=== PATIENT | female | born 1995 | race Caucasian/White ===

== ENCOUNTER → 2016-08-12 | Day surgery (SDC) | payer BC ==
[~2016-08-12] MED LIST: ACET-1311 PO; LACTATED RINGER'S 1000ML 1,000 ML IV SCH
== END | disposition home or self-care (01) ==
LOC: EDSTATUS 07:00 → C.PAT 10:37
DX: J35.01 Chronic tonsillitis (principal)

== ENCOUNTER → 2017-01-17 | Outpatient (CLI) | payer BC ==
[~2017-01-17] MED LIST changes: -LACTATED RINGER'S 1000ML 1,000 ML IV SCH
== END | disposition home or self-care (01) ==
LOC: C.LABSPEC 11:30
DX: J02.9 Acute pharyngitis, unspecified (principal)

== ENCOUNTER → 2017-04-13 | Outpatient (CLI) | payer BC ==
[2017-04-13 14:42] LABS: HEMATOCRIT 39.8 % (37-47); MEAN CELL VOLUME 83.3 fL (80-100); MEAN CORPUSCULAR HEMOGLOBIN 28.5 pg (25-34); MEAN CORPUSCULAR HGB CONC 34.2 g/dl (32-36); MEAN PLATELET VOLUME 10.5 fL (7.4-10.4); PLATELET COUNT 257 K/uL (130-400); RED BLOOD COUNT 4.78 M/uL (4.2-5.4); WHITE BLOOD COUNT 6.53 K/uL (4.8-10.8)
[2017-04-13 15:09] LABS: FERRITIN 32.6 ng/ml (8.0-388.0)
== END | disposition home or self-care (01) ==
LOC: C.LAB 14:04
DX: E61.1 Iron deficiency (principal)

== ENCOUNTER 2017-04-18 20:45 | Emergency (ER) | payer BC ==
[~2017-04-18] VITALS: Ht 167.6 cm; Wt 99.6 kg
[2017-04-18 21:11] VITALS: TEMP 36.7; Ht 167.6 cm; Wt 99.6 kg
[2017-04-18] MEDS ORDERED: DIPHTHERIA/TETANUS/PERTUSSIS 0.5 ML SYR/VIAL IM. ONE (21:45)
[2017-04-18] MEDS ORDERED: XYLOCAINE 1%/SOD BICARB 20 ML VIAL INFIL ONE (21:45)
[2017-04-18 22:21] VITALS: BP 123/88; PULSE 78; O2SAT 99
--- NOTE | 2017-04-18 22:25 | EMERGENCY ROOM VISIT NOTE ---
ED Visit Note First contact with patient: 21:34 CHIEF COMPLAINT: Finger laceration HISTORY OF PRESENT ILLNESS: This 22 year old female patient presents to the emergency department after cutting the left fourth finger while trying to cut an avocado about one hour ago. The bleeding has stopped. Denies weakness or numbness of the finger. The patient has full range of motion of the fingers. The patient rates the pain as sharp and 4/10. The patient denies any other injuries. The patient's tetanus shot is not up to date. REVIEW OF SYSTEMS: A 6 system review of systems was completed with positives and pertinent negatives listed in the HPI. ALLERGIES: No known allergies MEDICATIONS: No chronic medication PMH: No chronic medical disease SOCIAL HISTORY: Lives locally PHYSICAL EXAM: Vital Signs: Reviewed Nurse's notes, vital signs stable. GENERAL : White female, in no acute distress, well developed, well nourished. SKIN: There is a 1.5 cm long laceration on the palmar aspect of the left 4th finger near the PIP joint. The edges gape apart with traction. There is no foreign material in the wound and it looks clean. There is no significant bleeding. No deep structures such as tendons, bones, or significant blood vessels are seen in the base of the wound. Extension and flexion of the finger is full and strong. Full range of motion of the wrist and other fingers. Capillary refill less than 2 seconds. Normal sensation to light and sharp touch. EMERGENCY DEPARTMENT COURSE: I examined the patient. Verbal consent was obtained to perform the procedure. Using sterile technique the wound was cleansed with Betadine. 1 ml of 1% buffered lidocaine was used to perform a local block to anesthetize the patient. The area was sterilely draped. Once the patient was anesthetized, the wound was copiously irrigated under pressure with sterile saline. The wound was explored and there were no deep structures injured. The laceration was repaired using 4 simple interrupted 5-0 nylon sutures. The patient tolerated the procedure well. Hemostasis was achieved. The area was cleaned with sterile saline and dressed with bacitracin ointment and bandage. The patient was given a tetanus booster. The patient was discharged home in good condition. Problem List Medical Problems: (1) Patient currently Status: Chronic Current/Historical Medications No Active Prescriptions or Reported Meds Allergies Coded Allergies: No Known Allergies (Unverified , 9/12/17) Vital Signs Date Time Temp Pulse Resp B/P (MAP) Pulse Ox O2 Delivery O2 Flow Rate FiO2 04/18/17 21:11 36.7 70 20 129/81 96 Room Air Medications Administered Medications (Trade) Dose Ordered Sig/Cuong Route Start Time Stop Time Status Last Admin Dose Admin Diphtheria/ Pertussis/Tetanus Vacc (Adacel Inj) 0.5 ml ONCE ONCE IM. 04/18/17 21:45 04/18/17 21:46 DC 04/18/17 22:14 0.5 ML Departure Information Impression Primary Impression: Finger laceration Dispostion Home / Self-Care Condition GOOD Prescriptions No Active Prescriptions or Reported Meds Forms HOME CARE DOCUMENTATION FORM, IMPORTANT VISIT INFORMATION Patient Instructions My [facility] Additional Instructions Keep wound clean and dry. Do not allow any crusting or dried blood to accumulate on sutures. If this occurs, use a mild soap/water on a Q-tip to clean the wound. Do not use Peroxide to clean the wound as this can delay healing Use an antibiotic ointment like Bacitracin for 3-4 days, then let wound dry. You may bathe and shower as normal, but DO NOT SOAK the wound. Suture removal in about 8-10 days with your Family Doctor or in the ER. Return sooner for any signs of infection, increasing redness, swelling, or drainage.
== END 2017-04-18 22:20 | disposition home or self-care (01) ==
LOC: C.EDB 20:46 → C.EDD 22:20
DX: S61.215A Laceration without foreign body of left ring finger without damage to nail, initial encounter (principal); W45.8XXA Other foreign body or object entering through skin, initial encounter; Z23 Encounter for immunization

== ENCOUNTER → 2017-04-21 | Outpatient (CLI) | payer BC | END | disposition home or self-care (01) | LOC: C.PAPS 12:03 | PROVIDERS: ATTEND Physician Assistant | DX: Z01.419 Encounter for gynecological examination (general) (routine) without abnormal findings (principal) ==

== ENCOUNTER → 2017-04-21 | Outpatient (CLI) | payer BC ==
[2017-04-24 14:03] LABS: CHLAMYDIA TRACH RNA*** NOT DETECTED (NOT DETECTED); GC (NEIS GONORRHOEAE)RNA** NOT DETECTED (NOT DETECTED)
== END | disposition home or self-care (01) ==
LOC: C.LABSPEC 13:20
PROVIDERS: ATTEND Physician Assistant
DX: Z01.419 Encounter for gynecological examination (general) (routine) without abnormal findings (principal)

== ENCOUNTER 2017-04-26 14:19 | Emergency (ER) | payer BC ==
[~2017-04-26] VITALS: Ht 167.6 cm; Wt 100.0 kg
[2017-04-26 14:31] VITALS: Ht 167.6 cm; Wt 100.0 kg
--- NOTE | 2017-04-26 14:43 | EMERGENCY ROOM VISIT NOTE ---
ED Visit Note First contact with patient: 14:37 CHIEF COMPLAINT: Suture removal HISTORY OF PRESENT ILLNESS: This 22-year-old female patient returns to the ED today for removal of sutures that were placed 8 days ago. There has been no swelling, redness, or drainage from the wound. The patient feels like the laceration is healing well. REVIEW OF SYSTEMS: A 6 system review of systems was completed with positives and pertinent negatives listed in the HPI. PMH: Unchanged from previous visit. ALLERGIES: No known drug allergies PHYSICAL EXAM: Vital Signs: Reviewed Nurse's notes, vital signs stable. GENERAL : This is a 22-year-old female, in no acute distress. SKIN: There is a sutured wound on the finger with no signs of infection. There is no erythema, swelling, or tenderness. EMERGENCY DEPARTMENT COURSE: 4 sutures were removed without any difficulty and there was no separation of the wound edges. The patient was discharged home in good condition. DIAGNOSIS: Healing laceration and suture removal DISCHARGE INSTRUCTIONS AND TREATMENT: Wash any remaining crusts off of the wound today and resume your normal activities. Problem List Medical Problems: (1) Patient currently Status: Chronic Current/Historical Medications Scheduled PRN Acetaminophen (Tylenol), 650 MG PO DAILY PRN for Pain or Fever Allergies Coded Allergies: No Known Allergies (Unverified , 04/26/17) Vital Signs Date Time Temp Pulse Resp B/P (MAP) Pulse Ox O2 Delivery O2 Flow Rate FiO2 04/26/17 15:18 36.9 81 16 97 04/26/17 14:31 36.9 81 16 121/75 97 Room Air Departure Information Impression Primary Impression: Encounter for removal of sutures Dispostion Home / Self-Care Condition GOOD Referrals No Doctor, Assigned (PCP) Patient Instructions My [facility] Additional Instructions Wash any remaining crusts off of the wound today and resume your normal activities.
[2017-04-26] MEDS ORDERED: ACET-1311 PO (14:56)
[2017-04-26 15:18] VITALS: BP 121/75; PULSE 81; TEMP 36.9; O2SAT 97
== END 2017-04-26 15:00 | disposition home or self-care (01) ==
LOC: C.EDB 14:25 → C.EDD 15:00
DX: Z48.02 Encounter for removal of sutures (principal)

== ENCOUNTER 2017-08-23 09:36 | Emergency (ER) | payer BC, OTHER ==
[~2017-08-23] VITALS: Ht 167.6 cm; Wt 101.7 kg
[2017-08-23 09:41] VITALS: Ht 167.6 cm; Wt 101.7 kg
[2017-08-23] MEDS ORDERED: PSEUDOEPHEDRINE HCL 30 MG TAB PO STA (10:15)
[2017-08-23] MEDS ORDERED: SODIUM CHLORIDE 0.9% 1000ML 1,000 ML IV ONE (10:15)
[2017-08-23] MEDS ORDERED: BENZONATATE 100MG CAP PO ONE (10:15)
[2017-08-23] MEDS ORDERED: KETOROLAC TROMETHAMINE 30 MG/ML VIAL IV STA (10:15)
[2017-08-23] MEDS ORDERED: DiphenhydrAMINE HCL 50 MG/ML VIAL IV STA (10:15)
[2017-08-23] MEDS ORDERED: ALBUT/IPRATROP 3MG/0.5MG NEB 3 ML VIAL INH STA (10:19)
[2017-08-23] MEDS ORDERED: BCPILLS PO (10:25)
[2017-08-23 10:58] LABS: BASO % 0.2 %; BASO ABS # 0.01 K/uL (0-0.2); HEMATOCRIT 40.3 % (37-47); HEMOGLOBIN 14.1 g/dL (12.0-16.0); IG# 0.01 K/uL (0.00-0.02); LYMPH % 11.4 %; LYMPH ABS # 0.65 K/uL (1.2-3.4); MEAN CELL VOLUME 84.8 fL (80-100); MEAN CORPUSCULAR HEMOGLOBIN 29.7 pg (25-34); MEAN PLATELET VOLUME 9.9 fL (7.4-10.4); MONO % 5.9 %; MONO ABS # 0.34 K/uL (0.11-0.59); NEUT % 82.3 %; NEUT ABS # 4.71 K/uL (1.4-6.5); PLATELET COUNT 193 K/uL (130-400); RED CELL DISTRIBUTION WIDTH CV 13.3 % (11.5-14.5); RED CELL DISTRIBUTION WIDTH SD 41.1 fL (36.4-46.3); WHITE BLOOD COUNT 5.72 K/uL (4.8-10.8)
[2017-08-23 11:00] LABS: INFLUENZA B ANTIGEN Neg for Influ B (NEG)
--- NOTE | 2017-08-23 11:22 | DIAGNOSTIC IMAGING REPORT ---
CHEST 2 VIEWS ROUTINE CLINICAL HISTORY: Cough, fever and shortness of breath COMPARISON STUDY: No previous studies for comparison. FINDINGS: Lung volumes are diminished. Bibasilar opacities, left greater the right, are noted. This could reflect atelectasis or pneumonia. Right basilar opacity favors atelectasis. Cardiac size is normal. Mediastinal contours are normal. There is no evidence for pulmonary edema. IMPRESSION: Bibasilar opacities, left greater than right. Given diminished lung volumes, atelectasis is favored although a left lower lobe pneumonia could have this appearance. Electronically signed by: Pablito Echeverria M.D. 08/23/2017 11:21 AM Dictated Date/Time: 08/23/2017 11:19 AM
[2017-08-23 11:23] LABS: ALBUMIN 3.4 gm/dl (3.4-5.0); CALCIUM 8.5 mg/dl (8.5-10.1); CREATININE 0.78 mg/dl (0.60-1.20); TOTAL PROTEIN 7.6 gm/dl (6.4-8.2)
[2017-08-23] MEDS ORDERED: OSEL75CA12 PO (12:16)
[2017-08-23] MEDS ORDERED: PRED20TA2 PO (12:16)
[2017-08-23] MEDS ORDERED: BENZ100C18 PO (12:16)
[2017-08-23] MEDS ORDERED: VNTHFA/IN INH (12:16)
[2017-08-23] MEDS ORDERED: AZIT250T PO (12:16)
[2017-08-23 12:34] VITALS: BP 126/72; PULSE 120; TEMP 37.3; O2SAT 97
--- NOTE | 2017-08-24 06:59 | EMERGENCY ROOM VISIT NOTE ---
ED Visit Note First contact with patient: 09:53 Chief Complaint: Cough, shortness of breath, fever and migraine headache. History of Present Illness: Ms. Ugalde is a 22-year-old white female who ambulates into the ED accompanied by her mother with multiple complaints. Patient reports her symptoms started on Monday, 3 days ago, with what she describes as a migraine headache. She reports this is similar to her previous migraine headaches and is not the worst migraine headache of her life. Her pain is located over the right temporoparietal area. She describes this discomfort as a throbbing sensation. She currently rates her discomfort 6/10. Her pain is nonradiating. She has not identified any aggravating or alleviating factors related to the pain. She reports she's been using over-the- counter ibuprofen and acetaminophen without relief of her discomfort. On the second day of her headache she reports she developed a cough with nasal congestion and nasal drainage. Since that time her cough and nasal drainage and congestion has been constant. Then late on day 2 of her illness she reports she started feeling short of breath with her cough but did not hear any wheezing and she developed fevers she reports the highest temperature she had at home was someone 102F orally. She has been taking additional Tylenol for her fever and other symptoms but does not feel like she's had any relief. Associated with her new symptom she does report she has been having body aches, chills, decreased appetite. Her cough is productive of a greenish sputum but no blood. She denies skin eruptions, skin color changes, dizziness, lightheadedness, visual changes, hearing changes, difficulty speaking, difficulty swallowing, difficulty ambulating/coordinating body movements, throat pain, neck pain/ stiffness, chest pain, palpitations, orthopnea, dependent edema, previous clots , claudication, cramping, recent surgery/inactivity/extended travel, tobacco and estrogen use, abdominal pain, nausea/vomiting, diarrhea, constipation, rectal bleeding, black/tarry stools, urinary symptoms. Additionally she denies close sick contacts with similar symptoms. Review of Systems: As noted above in history of present illness. At least body systems were reviewed and found to be negative as noted above. Past Medical History: As previously noted, unspecified skin disorder, anemia. Current Medications: control. Allergies to Medications: Patient denies. Social History: Patient is currently employed; she feels safe in her home environment; she denies tobacco use and admits to alcohol use. Physical Examination: Vital Signs: Date Time Temp Pulse Resp B/P (MAP) Pulse Ox O2 Delivery O2 Flow Rate FiO2 08/23/17 12:34 37.3 120 22 126/72 97 08/23/17 12:06 125 23 96 08/23/17 12:00 121/66 08/23/17 11:36 109 25 96 08/23/17 11:30 106/59 08/23/17 11:28 117 18 115/64 98 08/23/17 11:21 115/64 08/23/17 11:06 121 27 08/23/17 10:36 114 26 08/23/17 10:23 121 08/23/17 09:41 38.4 125 20 124/70 95 Room Air GENERAL: 22-year-old female in mild to moderate distress due to symptoms, nontoxic-appearing, febrile and hemodynamically stable. NEUROLOGICAL: Awake, alert and oriented to person, place and time. Answering questions appropriately and following commands. Normal gait. Good hand eye coordination. No focal motor or sensory deficits. SKIN: Hot, dry and pink. No soft tissue eruptions or trauma noted. HEENT: Atraumatic and normocephalic. Mild tenderness over the frontal or maxillary sinuses. No tenderness in the area of her migraine headache. External ears are nontender. Auditory canals are pink and patent. Tympanic membranes are pearly diamond with normal light reflex. PERRLA. Sclera white and conjunctiva pink without drainage. No drainage from naris, but with audible congestion. Oral cavity moist and pink. Uvula is midline and no abscesses are seen. Pharynx is nonerythematous or edematous. No tonsillar hypertrophy or exudates. Speech normal. No lymphadenopathy. Trachea midline. No jugular venous distention. BACK: No tenderness over the bony spine. No meningismus. Full range of motion of the cervical spine. No CVA tenderness. THORAX: Lungs sounds are clear to auscultation and equal bilaterally with symmetrical chest wall. Decreased air movement in the bilateral lower lobes with prominence on the left. There were a few scattered rhonchi on the left that cleared with cough; no rales or wheezing. No wheezing, rales or rhonchi. Mild tenderness over the upper sternal area without bony deformity, bony crepitus or subcutaneous air. HEART: Tachycardic rate and rhythm. No gallops, rubs or murmurs are appreciated. PMI is not displaced. No lifts, heaves or thrills. ABDOMEN: Flat, soft and nontender. Positive bowel sounds in all quadrants. No guarding, rigidity or organomegaly. EXTREMITIES: Moves all extremities well on command and with purpose. All distal neurovascular statuses are intact and equal bilaterally. No calf tenderness or cords. ED Course: Patient is assessed as noted above. Patient's medication list was reviewed. Laboratory Testing: Test 08/23/17 09:19 08/23/17 10:30 08/23/17 10:56 Range/Units Influenza Type A Antigen POS for Influ A NEG Influenza Type B Antigen Neg for Influ B NEG White Blood Count 5.72 4.8-10.8 K/uL Red Blood Count 4.75 4.2-5.4 M/uL Hemoglobin 14.1 12.0-16.0 g/dL Hematocrit 40.3 37-47 % Mean Corpuscular Volume 84.8 80-100 fL Mean Corpuscular Hemoglobin 29.7 25-34 pg Mean Corpuscular Hemoglobin Concent 35.0 32-36 g/dl Platelet Count 193 130-400 K/uL Mean Platelet Volume 9.9 7.4-10.4 fL Neutrophils (%) (Auto) 82.3 % Lymphocytes (%) (Auto) 11.4 % Monocytes (%) (Auto) 5.9 % Eosinophils (%) (Auto) 0.0 % Basophils (%) (Auto) 0.2 % Neutrophils # (Auto) 4.71 1.4-6.5 K/uL Lymphocytes # (Auto) 0.65 1.2-3.4 K/uL Monocytes # (Auto) 0.34 0.11-0.59 K/uL Eosinophils # (Auto) 0.00 0-0.5 K/uL Basophils # (Auto) 0.01 0-0.2 K/uL RDW Standard Deviation 41.1 36.4-46.3 fL RDW Coefficient of Variation 13.3 11.5-14.5 % Immature Granulocyte % (Auto) 0.2 % Immature Granulocyte # (Auto) 0.01 0.00-0.02 K/uL Sodium Level 130 136-145 mmol/L Potassium Level 3.5-5.1 mmol/L Chloride Level 99 98-107 mmol/L Carbon Dioxide Level 22 21-32 mmol/L Anion Gap 9.0 3-11 mmol/L Blood Urea Nitrogen 7 7-18 mg/dl Creatinine 0.78 0.60-1.20 mg/dl Est Creatinine Clear Calc Drug Dose 135.0 ml/min Estimated GFR () 124.2 Estimated GFR (Non- 107.2 BUN/Creatinine Ratio 8.7 10-20 Random Glucose 107 70-99 mg/dl Calcium Level 8.5 8.5-10.1 mg/dl Total Bilirubin 0.3 0.2-1 mg/dl Aspartate Amino Transf (AST/SGOT) 15-37 U/L Alanine Aminotransferase (ALT/SGPT) 32 12-78 U/L Alkaline Phosphatase 81 45-117 U/L Total Protein 7.6 6.4-8.2 gm/dl Albumin 3.4 3.4-5.0 gm/dl Globulin 4.2 2.5-4.0 gm/dl Albumin/Globulin Ratio 0.8 0.9-2 Bedside Troponin I < 0.030 0-0.045 ng/ml Chest X-Rays: Were read by myself and the radiologist showing bibasilar opacities greater than right. Radiologist questions at this is atelectasis or pneumonia. Normal heart silhouette and bony anatomy. No evidence of pulmonary edema. EKG: Was read by myself and shows sinus tachycardia with a ventricular rate of 116 bpm. Normal axis, intervals and complexes. No acute ST changes indicating ischemia, injury or infarction. Medical records were reviewed with no comparisons were found. Patient was hydrated with normal saline and received an albuterol/Atrovent nebulizer breathing treatment, 30 mg of Toradol IV for pain and fever, 25 mg of Benadryl IV, 60 mg of pseudoephedrine IV and 200 mg of Tessalon Perles by mouth. Patient was reassessed multiple times during her stay in the emergency department; after her breathing treatment her lungs are reassessed showed improved air movement in all álvarez including the bases but the left based was still decreased; she had no wheezing rales or rhonchi. Patient's case was reviewed with Dr. Sarmiento; we agreed on diagnostic approach , treatment, disposition and plan. Patient was educated about today's findings and instructed on her treatment plan ; she verbalized understanding and agreement with this plan. Clinical Impression: Influenza A. Left lower lobe pneumonia. Migraine headache. Decision-Making: Initially my differential diagnosis for her headache I considered migraine, sinusitis, intracranial bleed and other causes. For her upper respiratory tract symptoms and fever I considered influenza, pneumonia, bronchitis and other causes. Disposition: Patient discharged home in stable condition accompanied by her mother; prior to departure she was reassessed and subjectively reported she was feeling much better. She rated her headache discomfort 2/10 and felt she had improvement of her cough. Plan: A she was encouraged to alternate ibuprofen and acetaminophen as needed for persistent pain. Patient was prescribed Tamiflu, Zithromax, Tessalon Perles, prednisone and albuterol inhaler and instructed on their use. Patient is encouraged to use OTC pseudoephedrine for congestion. Patient is encouraged to follow-up with family physician for recheck in 2-3 days. Patient was signed off of work and school until she was fever free for 24 hours. Patient was encouraged return ED for worsening symptoms, uncontrolled fevers, uncontrolled shortness of breath/cough, coughing up blood or any new/concerning symptoms.
== END 2017-08-23 12:35 | disposition home or self-care (01) ==
LOC: C.EDB 09:38
DX: J11.00 Influenza due to unidentified influenza virus with unspecified type of pneumonia (principal); G43.909 Migraine, unspecified, not intractable, without status migrainosus

== ENCOUNTER 2024-08-14 08:50 | Inpatient (IN) ==
[2024-08-14] MEDS ORDERED: CALCIUM CARBONATE 500 MG CHEWABLE TAB PO PRN (09:15)
[2024-08-14] MEDS ORDERED: ACETAMINOPHEN 325 MG TAB PO PRN ×2 (09:15→18:14)
[2024-08-14] MEDS ORDERED: LIDOCAINE 1% LOCAL 20 ML VIAL INFIL PRN (09:15)
[2024-08-14] MEDS ORDERED: OXYTOCIN 30 UNITS/NSS 30 UNITS/500 ML BAG IV PRN ×2 (09:15→18:14)
[2024-08-14 09:44] LABS: Hematocrit (blood only) 36.4 % (37.0-47.0); Hemoglobin 12.3 g/dl (12.0-16.0); Mean Corpuscular Hemoglobin 28.3 pg (25.0-34.0); Mean Corpuscular Hgb Conc 33.8 g/dL (32.0-36.0); Mean Corpuscular Volume 83.9 fL (80.0-100.0); Mean Platelet Volume 10.5 fL (9.4-12.4); Platelet Count 189 K/uL (130-400); RDW Standard Deviation 43.2 fL (36.4-46.3); Red Blood Count 4.34 M/uL (4.20-5.40)
--- NOTE | 2024-08-14 11:12 | History & Physical Report ---
Date of Service August 14, 2024 Assessment & Plan (1) Encounter for supervision of normal intrauterine in multigravida, antepartum: Plan 29 year old presenting in labor at 39+6WGA with a hx of gestational diabetes mellitus. ROS noncontributory besides expected abdominal pain. Contractions began at 4:30AM and patient noticed bloody show at 6:30AM. Currently receiving ptocin. Continue deep breathing techniques, current PRN medications and monitoring labor progression. Epidural is available for when patient requests pain control. History of Present Illness Chief Complaint: currently in labor Primary Care Provider: Cristy Hughes DO Patient is a 29 yo female A2 currently at 39+6WGA with an CORNEL 08/15/2024 as determined by LMP who is here in labor. Her was complicated by Gestational Diabetes Mellitus(GDM), managed with diet. Sugars usually 90 or lower throughout . Contractions began at 4:30AM about 10 minutes apart, continuing to shorten; movement present; No ruptured membranes or fluid loss; noticed bloody show at 6:30AM External FHT and external uterine monitors used; category I tracing; normal FHT variability Had regular appointments with OB, has had serial reactive NSTs since 07/22/24 @ 32 weeks and growth US since 24weeks. GBS Negative. Blood type: A Positive Antibody screen: Negative (01/18/2024) Hgb: 12.3 (today) Hct: 36.4 (today) WBC: 10.2 (today) Plt: 189 (today) Rubella: Immune (01/18/24) VDRL/RPR: Negative (01/18/24) Gonorrhea: Not Detected (01/18/24) Chlamydia: Not Detected (01/18/24) HIV: Non-Reactive (01/18/24) HbSAg: Non-Reactive (01/18/24) GBS: Negative Other screens: cff-DNA: Negative (see scanned documents) CF: Negative SMA: Negative Allergies Allergy/AdvReac Type Severity Reaction Status Date / Time No Known Allergies Allergy Unverified 08/13/24 10:57 Home Medications Medication Instructions Recorded Confirmed Type acetone (urine) test (Ketone Urine #50 ea 03/29/24 08/13/24 Rx Test strips) blood sugar diagnostic (OneTouch #150 ea 03/29/24 08/13/24 Rx Verio test strips) blood-glucose meter (OneTouch #1 ea 03/29/24 08/13/24 Rx Verio Reflect Meter) lancets 33 gauge (OneTouch Delica #150 ea 03/29/24 08/13/24 Rx Plus Lancet) breast pump #1 ea 05/23/24 08/13/24 Rx vits no.124-ferrous fum 1 tab PO DAILY 08/14/24 08/14/24 History 27 mg iron-folic acid 800 mcg tablet ( Vitamin) Patient History Medical History Varicella vaccination Surgical History No pertinent past surgical history Family History Aunt Breast cancer Father Hypertension Dyslipidemia Diabetes Denies family history of Ovarian cancer Colorectal cancer Social History Smoking Status: Never smoker Do You Dip or Chew Tobacco: No; Hx Alcohol Use: No Hx Substance Use: No Preferred Language: Hebrew Communication Ability: Effective Back Hanger Required: No Beliefs That Will Affect Care: None marital status: Single marital status details: Jose Juan Figueroa (30) [phone] Current Living Situation: Significant Other Current Living Situation Comment: Lives with fiance and daughter, 2 dogs current occupational status: employed current occupation: [employer] Feels Safe at Home: Yes Safety Concerns: Feels Safe At This Time OB History Had at 40 weeks in 2012 resulting in healthy female. No complications, no use of forceps/vacuum during delivery. Had a spontaneous at 6 weeks in October 2022 and spontaneous at 6 weeks in August 2023. [employer] WORK[employer] History No history of gynecologic disorders Review of Systems All systems reviewed & are unremarkable except as noted in HPI & below Denies fever, night sweats Denies vision changes Linus SOB, cough. Additional Comments: Denies CP, palpitations Denies N/V. Denies headache. Physical Exam Constitutional: WD/WN, vitals as above Respiratory: normal respiratory effort, lungs clear to auscultation Cardiovascular: RRR, no murmur, no edema Gastrointestinal (Abdomen): Inspection/Auscultation: normal bowel sounds Uterus is term . On Manohar's manuver, baby appeared to be in cephalic presentation. Genitourinary: OB Exam Abdomen: + vertex and + regular contractions (3-5 minutes mild to moderate) OB Exam Monitor Tracing: + external FHT monitor used, + external uterine monitor used, + category I and + normal FHT variability 4-5cm/80/-2 Results & Data Vital Signs (Past 12 Hours) Vital Signs Temp Pulse Resp BP 08/14/24 09:10 107 H 08/14/24 09:10 130/84 08/14/24 09:06 36.9 C 18 08/14/24 09:03 115 H 143/81 H Supervising Physician Co-Signing Physician Notes Resident Physician Supervision Note: I interviewed and examined the patient. Discussed with Dr. Rodriguez and agree with findings and plan as documented in the note. Any exceptions or clarifications are listed here: [None] Documented By: Lesli Miller MD, FACOG
[2024-08-14] MEDS: SODIUM CHLORIDE 0.9% 1,000 ML IV SCH (12:05)
[2024-08-14] MEDS ORDERED: NALBUPHINE HCL INJ 10 MG/ML AMP IV PRN (12:18)
[2024-08-14] MEDS ORDERED: diphenhydrAMINE 50 MG/ML VIAL IV PRN (12:18)
[2024-08-14] MEDS ORDERED: LIDOCAINE 2% MPF LOCAL 5 ML VIAL EPI PRN (12:18)
[2024-08-14] MEDS ORDERED: NALOXONE HCL 0.4 MG/1 ML VIAL/CARP IV PRN (12:18)
[2024-08-14] MEDS ORDERED: ROPIVACAINE 0.5% PF 5 MG/ML 20 ML VIAL EPI PRN (12:18)
[2024-08-14] MEDS ORDERED: SODIUM CHLORIDE 0.9% PF INJ 10 ML VIAL EPI PRN (12:18)
[2024-08-14] MEDS ORDERED: ePHEDrine sulfate 50 MG/ML AMP IV PRN (12:18)
[2024-08-14] MEDS ORDERED: NALOXONE HCL 1 MG in SODIUM CHLORIDE 0.9% 1,000 ML IV PRN (12:18)
--- NOTE | 2024-08-14 12:20 | Anesthesiology Consultation ---
Date of Service August 14, 2024 Assessment & Plan ASA ASA2 Proposed Anesthesia Anesthesia Type: Labor Epidural History Height/Weight Height: 5 ft 5 in Weight: 108.862 kg Allergies Allergy/AdvReac Type Severity Reaction Status Date / Time No Known Allergies Allergy Unverified 08/13/24 10:57 Medications Home Medications Medication Instructions Recorded Confirmed Last Taken acetone (urine) test (Ketone Urine #50 ea 03/29/24 08/13/24 Unknown Test strips) blood sugar diagnostic (OneTouch #150 ea 03/29/24 08/13/24 Unknown Verio test strips) blood-glucose meter (OneTouch #1 ea 03/29/24 08/13/24 Unknown Verio Reflect Meter) lancets 33 gauge (OneTouch Delica #150 ea 03/29/24 08/13/24 Unknown Plus Lancet) breast pump #1 ea 05/23/24 08/13/24 Unknown vits no.124-ferrous fum 1 tab PO DAILY 08/14/24 08/14/24 08/13/24 27 mg iron-folic acid 800 mcg tablet ( Vitamin) Active Medications Generic Name Dose Route Start Last Admin Trade Name Freq PRN Reason Stop Dose Admin Bupivacaine HCl 30 ml 08/14/24 12:18 08/14/24 12:52 Bupivacaine 0.25% Pf 30 Ml Vial EPI 08/15/24 12:17 30 ml ONCE PRN Administration Epidural Redose Fentanyl Citrate 100 mcg 08/14/24 12:18 08/14/24 12:53 Fentanyl Citrate Pf 100 Mcg/2 Ml Vial EPI 08/15/24 12:17 100 mcg ONCE PRN Administration Epidural Redose Fentanyl/Bupivacaine/Sodium Chlor 100 ml 08/14/24 12:18 08/14/24 12:53 Fentanyl 2 Mcg/Ml Bupivacaine 0.125%-Nss 100ml Bag EPI 08/15/24 12:17 100 ml PRN PRN Administration Pain R/T Labor Protocol Sodium Chloride 1,000 mls @ 125 mls/hr 08/14/24 12:15 08/14/24 13:09 Nss IV 08/15/24 12:14 125 mls/hr .Q8H KARLEE Administration Oxytocin 30 units in 500 mls @ 5 mls/hr 08/14/24 13:24 08/14/24 16:35 Pitocin 30 Units/Nss IV 08/16/24 13:23 0.3 units/hr .Q24H PRN 5 mls/hr Labor Induction/Augmentation Titration Protocol 0.3 UNITS/HR Ondansetron HCl 4 mg 08/14/24 12:18 08/14/24 14:18 Ondansetron Inj 2 Mg/Ml 2 Ml Vial IV 08/15/24 12:17 4 mg Q6H PRN Administration Nausea &/or Vomiting Past Medical History Medical History Varicella vaccination Past Family History Family History Aunt Breast cancer Father Hypertension Dyslipidemia Diabetes Denies family history of Ovarian cancer Colorectal cancer Past Surgical History Surgical History No pertinent past surgical history Social History Smoking Status: Never smoker Do You Dip or Chew Tobacco: No Hx Alcohol Use: No Hx Substance Use: No substance use type: does not use Physical Exam Vital Signs Last Vital Signs Temp 36.7 C 08/14/24 15:16 Pulse 101 H 08/14/24 18:21 Resp 16 08/14/24 18:20 BP 104/57 L 08/14/24 18:20 Pulse Ox 99 08/14/24 18:21 Testing Laboratory Results 08/14/24 09:24 Blood Type A Positive 08/14/24 09:24 Antibody Screen NEGATIVE 08/14/24 09:24 08/14/24 10:46 POC Glucose 82
[2024-08-14] MEDS: LIDOCAINE 2%/EPINEPHRINE 1:200,000 20 ML PF EPI STA (12:52)
[2024-08-14] MEDS: BUPIVACAINE 0.25% PF 30 ML VIAL EPI PRN (12:52)
[2024-08-14] MEDS: fentaNYL citrate PF 100 MCG/2 ML VIAL EPI PRN (12:53)
[2024-08-14] MEDS: fentANYL 2 MCG/ML BUPIVacaine 0.125%-NSS 100ML BAG EPI PRN (12:53)
[2024-08-14] MEDS: OXYTOCIN 30 UNITS/NSS 30 UNITS/500 ML BAG IV PRN (13:49)
[2024-08-14] MEDS: ONDANSETRON INJ 2 MG/ML 2 ML VIAL IV PRN (14:18)
--- NOTE | 2024-08-14 15:41 | Labor Progress Brief Note ---
Date of Service August 14, 2024 Subjective Reason For Note: Routine Evaluation comfortable with epidural some nausea- got IV zofran FHT- category 1 ctns Q3 minutes cervix 5cm/80/-2- AROM for meconium stained fluid at 1500 Review of Systems All systems reviewed & are unremarkable except as noted in HPI & below Results & Data Vital Signs (Past 12 Hours) Vital Signs Temp Pulse Resp BP Pulse Ox 08/14/24 15:36 100 08/14/24 15:36 65 08/14/24 15:31 100 08/14/24 15:31 73 08/14/24 15:29 70 08/14/24 15:29 99/56 L 08/14/24 15:26 100 08/14/24 15:26 71 08/14/24 15:21 100 08/14/24 15:21 78 08/14/24 15:16 100 08/14/24 15:16 64 08/14/24 15:16 99/56 L 08/14/24 15:11 100 08/14/24 15:11 64 08/14/24 15:06 100 08/14/24 15:06 64 08/14/24 15:01 98 08/14/24 15:01 77 08/14/24 15:01 107/59 L 08/14/24 14:59 93 08/14/24 14:59 81 08/14/24 14:56 100 08/14/24 14:56 82 08/14/24 14:51 100 08/14/24 14:51 130 H 08/14/24 14:50 93 08/14/24 14:50 85 08/14/24 14:46 100 08/14/24 14:46 83 08/14/24 14:44 83 08/14/24 14:44 90/55 L 08/14/24 14:41 97 08/14/24 14:41 107 H 08/14/24 14:40 91 08/14/24 14:40 89 08/14/24 14:36 100 08/14/24 14:36 78 08/14/24 14:35 93 08/14/24 14:35 89 08/14/24 14:31 100 08/14/24 14:31 83 08/14/24 14:31 73 08/14/24 14:31 92/50 L 08/14/24 14:29 88 08/14/24 14:29 92/55 L 08/14/24 14:26 95 08/14/24 14:26 81 08/14/24 14:25 92 08/14/24 14:25 83 08/14/24 14:20 96 08/14/24 14:20 89 08/14/24 14:20 91 08/14/24 14:20 90 08/14/24 14:15 100 08/14/24 14:15 84 08/14/24 14:14 103 H 08/14/24 14:14 94/66 L 08/14/24 14:10 98 08/14/24 14:10 86 08/14/24 14:07 91 08/14/24 14:07 95 H 08/14/24 14:05 98 08/14/24 14:05 98 H 08/14/24 14:00 95 08/14/24 14:00 96 H 08/14/24 14:00 93 H 08/14/24 14:00 111/63 08/14/24 13:55 100 08/14/24 13:55 91 H 08/14/24 13:50 100 08/14/24 13:50 86 08/14/24 13:45 100 08/14/24 13:45 84 08/14/24 13:45 96 H 08/14/24 13:45 114/56 L 08/14/24 13:40 99 08/14/24 13:40 93 H 08/14/24 13:40 94 08/14/24 13:40 97 H 08/14/24 13:35 100 08/14/24 13:35 91 H 08/14/24 13:30 100 08/14/24 13:30 92 H 08/14/24 13:28 80 08/14/24 13:28 119/69 08/14/24 13:25 98 08/14/24 13:25 90 08/14/24 13:21 88 08/14/24 13:21 121/66 08/14/24 13:20 100 08/14/24 13:20 90 08/14/24 13:19 90 08/14/24 13:19 97 H 08/14/24 13:15 100 08/14/24 13:15 89 08/14/24 13:15 87 08/14/24 13:15 97.5 F L 93 H 14 121/71 100 08/14/24 13:14 93 H 08/14/24 13:14 123/67 08/14/24 13:10 98 08/14/24 13:10 95 H 08/14/24 13:09 97 H 08/14/24 13:09 115/61 08/14/24 13:05 100 08/14/24 13:05 95 H 08/14/24 13:04 103 H 08/14/24 13:04 106/57 L 08/14/24 13:03 106 H 08/14/24 13:03 88/45 L 08/14/24 13:00 99 08/14/24 13:00 90 08/14/24 13:00 94 H 08/14/24 13:00 95/50 L 08/14/24 12:55 100 08/14/24 12:55 104 H 08/14/24 12:54 106 H 08/14/24 12:54 110/53 L 08/14/24 12:50 100 08/14/24 12:50 83 08/14/24 12:49 96 H 08/14/24 12:49 134/62 08/14/24 12:45 100 08/14/24 12:45 89 08/14/24 12:40 100 08/14/24 12:40 100 H 08/14/24 12:35 98 08/14/24 12:35 100 H 08/14/24 12:30 100 08/14/24 12:30 78 08/14/24 12:25 100 08/14/24 12:25 84 08/14/24 12:20 100 08/14/24 12:20 79 08/14/24 12:15 100 08/14/24 12:15 88 08/14/24 12:10 100 08/14/24 12:10 83 08/14/24 12:06 81 08/14/24 12:06 122/69 08/14/24 09:30 18 08/14/24 09:30 18 08/14/24 09:10 107 H 08/14/24 09:10 130/84 08/14/24 09:06 98.4 F 18 08/14/24 09:03 98.4 F 115 H 143/81 H Coding Level of Care Code 36050 SUB INP/OBS CARE
[2024-08-14] MEDS ORDERED: bisacodyL 10 MG SUPP PR PRN (18:14)
[2024-08-14] MEDS ORDERED: oxyCODONE/ACETAMINOPHEN 5mg/325mg TAB PO PRN (18:14)
[2024-08-14] MEDS ORDERED: DIPHTHER/TETAN/PERTUS Vaccine (Tdap, Adol/Adult) 0.5mL IM ONE (18:14)
[2024-08-14] MEDS ORDERED: HYDROCORTISONE ACETATE 25 MG SUPP PR PRN (18:14)
--- NOTE | 2024-08-14 18:31 | Anesthesia Procedure Note ---
Date of Service August 14, 2024 Anesthesia Post Epidural Note Vital Signs Vital Signs: Temp Pulse Resp BP Pulse Ox 36.7 C 101 H 16 104/57 L 99 08/14/24 15:16 08/14/24 18:21 08/14/24 18:20 08/14/24 18:20 08/14/24 18:21 Pain Intensity Abdomen: Pain Intensity: 0 Notes Mental Status: alert / awake / arousable and participated in evaluation Nausea / Vomiting: adequately controlled Pain: adequately controlled Airway Patency, RR, SpO2: stable & adequate BP & HR: stable & adequate Hydration State: stable & adequate Neuraxial Anesthesia: was administered and sensory block resolved Anesthetic Complications: no major complications apparent and Pt Satisfied with anesthetic care Epidural: Removed without complications and With tip intact
--- NOTE | 2024-08-14 18:33 | Delivery Summary ---
Vaginal Delivery Summary Date of Service August 14, 2024 Vaginal Delivery Summary and 1st Degree LAC (perineal) Patient is a 29-year-old 4 para 1-0-2-1 female EDC of 08/15/2024 who presented at 39-6/7 weeks in active labor. She received effective epidural analgesia. Membranes were then ruptured for meconium stained fluid. She progressed to full dilation and pushed effectively over intact perineum for delivery of a viable female in the occiput posterior presentation. The rest the infant delivered without maternal effort and was placed on the mother's abdomen for further attention and drying. She was vigorous crying and moving all 4 limbs. After 90 seconds, the cord was clamped and cut. After cord blood was obtained, the placenta was expressed intact with a three-vessel cord. bleeding was controlled with dilute Pitocin and fundal massage. A first-degree perineal laceration was repaired with 2-0 chromic in the usual fashion. QBL was 305 cc. Mother and were doing well after delivery. [facility] [place] Vaginal Delivery Charge Delivery Type Details: and 1st Degree LAC (perineal)
[2024-08-14] MEDS: DOCUSATE SODIUM 100 MG CAP PO SCH (21:13)
[2024-08-14] MEDS: IBUPROFEN 600 MG TAB PO PRN (21:13)
[2024-08-14] MEDS: BENZOCAINE 20% SPRY 85 APPLN/85 GM CAN EXT PRN (21:30)
[2024-08-15 06:56] LABS: Hemoglobin 10.7 g/dl (12.0-16.0); Mean Corpuscular Hemoglobin 28.5 pg (25.0-34.0); Mean Corpuscular Hgb Conc 33.4 g/dL (32.0-36.0); Mean Corpuscular Volume 85.3 fL (80.0-100.0); Mean Platelet Volume 10.8 fL (9.4-12.4); Platelet Count 167 K/uL (130-400); RDW Coefficient of Variation 14.2 % (11.5-14.5); RDW Standard Deviation 44.2 fL (36.4-46.3); Red Blood Count 3.75 M/uL (4.20-5.40); White Blood Count 10.38 K/ul (4.8-10.8)
[2024-08-15] MEDS: PRENATAL VITAMIN 1 TAB PO SCH (07:11)
--- NOTE | 2024-08-15 07:18 | Obstetrical Progress Note ---
Date of Service August 15, 2024 Assessment & Plan (1) Normal spontaneous vaginal delivery: Plan -Both mom and baby doing well. -Can go home in evening, if they are ready. -Follow up after 6 weeks Admission and Anticipated Discharge Date Admission Date: August 14, 2024 Supervising Physician Co-Signing Physician Notes Resident Physician Supervision Note: I interviewed and examined the patient. Discussed with Dr. Rodriguez and agree with findings and plan as documented in the note. Any exceptions or clarifications a re listed here: [None] Documented By: Lesli Miller MD, FACOG Subjective #1PPD Day following at 39+6 week POG. No active complains Both mom and baby doing well. Pain: Mild Lochia: Moderate Diet: Regular OB diet Gas: Passing, no abdominal distension Peeing: Normal, no bladder distension Ambulation: Normally Review of Systems Review of Systems: No SOB, chest pain, leg pain No dizziness, headache, palpitation No Blurring of vision , fever Physical Exam Physical Exam: General: Alert and oriented. No acute distress. CVS: S1 S2+ No murmurs, regular rhythm. Respiratory: CTA bilaterally. No rhonchi, wheezes, or crackles. No increased work of breathing. Abdomen: Bowel sound +. Soft, nontender Uterus: Fundus firm and palpable few cm below the umbilicus. Lower extremities: No LE edema. No deep calf pain. Results & Data Vital Signs (Past 12 Hours) Vital Signs Temp Pulse Pulse Resp BP BP Pulse Ox 08/15/24 03:45 36.8 C 67 20 122/82 99 08/14/24 23:30 36.7 C 70 18 93/63 L 97 08/14/24 21:10 37.2 C 82 20 108/71 97 08/14/24 20:35 100 H 08/14/24 20:35 115/60 08/14/24 20:20 83 08/14/24 20:20 113/55 L 08/14/24 20:05 18 08/14/24 20:05 18 08/14/24 20:05 91 H 08/14/24 20:05 119/60 08/14/24 19:50 105 H 08/14/24 19:50 129/60 08/14/24 19:35 18 08/14/24 19:35 18 08/14/24 19:35 99 H 08/14/24 19:35 120/62 08/14/24 19:20 98 H 08/14/24 19:20 117/70 O2 Del Method 08/15/24 03:45 Room Air 08/14/24 23:30 Room Air 08/14/24 21:10 Room Air 08/14/24 20:35 08/14/24 20:35 08/14/24 20:20 08/14/24 20:20 08/14/24 20:05 08/14/24 20:05 08/14/24 20:05 08/14/24 20:05 08/14/24 19:50 08/14/24 19:50 08/14/24 19:35 08/14/24 19:35 08/14/24 19:35 08/14/24 19:35 08/14/24 19:20 08/14/24 19:20
[2024-08-15 09:52] VITALS: RESP 18
[2024-08-15] MEDS: MEASLES, MUMPS & RUBELLA VIRUS VACCINE (MMR) 0.5ML VIAL SQ ONE (14:28)
[2024-08-15] MEDS: fentaNYL citrate PF 100 MCG/2 ML VIAL ONE (15:23)
[2024-08-15] MEDS: ePHEDrine sulfate 50 MG/ML AMP ONE (15:23)
[2024-08-15] MEDS: SODIUM CHLORIDE 0.9% PF INJ 10 ML VIAL EPI STA (15:24)
[2024-08-15] MEDS: BUPIVACAINE 0.25% PF 30 ML VIAL EPI STA (15:24)
[2024-08-15] MEDS: BUPIVACAINE 0.25% PF 30 ML VIAL ONE (15:24)
[2024-08-15] MEDS: LIDOCAINE 2%/EPINEPHRINE 1:200,000 20 ML PF ONE (15:24)
[2024-08-15] MEDS: fentaNYL citrate PF 100 MCG/2 ML VIAL EPI STA (15:24)
[2024-08-15] MEDS: fentANYL 2 MCG/ML BUPIVacaine 0.125%-NSS 100ML BAG ONE (15:24)
[2024-08-15] MEDS: SODIUM CHLORIDE 0.9% PF INJ 10 ML VIAL ONE (15:24)
[2024-08-15 16:11] VITALS: BP 112/76; PULSE 76; TEMP 97.9; O2SAT 98
[2024-08-15] MEDS ORDERED: bisacodyL 5 MG TABEC PO SCH (20:00)
== END 2024-08-15 19:18 | disposition home or self-care (01) | DRG 807 ==
LOC: OPB 08:50 → 4S1 08:52 → 4E2 21:06